=== PATIENT | female | born 1990 | race African-American/Black ===

== ENCOUNTER 2018-01-23 01:39 | Day surgery (SDC) | payer BC ==
[~2018-01-23] VITALS: Ht 162.6 cm; Wt 87.7 kg
[2018-01-23 02:25] LABS: HEMATOCRIT 33.9 % (36.0-46.0); HEMOGLOBIN 11.5 G/DL (11.9-15.5); MCH 27.9 PG (29.0-34.0); MCHC 33.9 G/DL (30.0-36.0); MCV 82.3 FL (83-99); PLATELET COUNT 198 K/uL (156-360); RBC DIS.WIDTH-CV 12.5 % (11.8-14.6); RBC DIS.WIDTH-SD 37.5 % (39-53); RED BLOOD COUNT 4.12 M/uL (3.80-5.20); WHITE BLOOD COUNT 11.6 K/uL (4.1-10.2)
[2018-01-23 02:33] LABS: ALBUMIN 3.7 g/dL (3.2-4.8); CHLORIDE 103 mEq/L (99-109); POTASSIUM 3.6 mEq/L (3.7-5.4); SODIUM 132 mEq/L (136-147)
[2018-01-23 02:35] LABS: GLUCOSE 103 mg/dL (70-99)
[2018-01-23 02:36] LABS: TOTAL PROTEIN 7.1 g/dL (6.4-8.3)
[2018-01-23 02:37] LABS: TOTAL BILIRUBIN 0.2 mg/dL (0.0-1.0)
[2018-01-23 02:39] LABS: ALKALINE PHOSPHATASE 71 IU/L (3-129); CREATININE 0.6 mg/dL (0.6-1.3)
[2018-01-23 02:40] LABS: GFR ESTIMATE (CALCULATED) > 59 mL/min/; UREA NITROGEN (BUN) 12 mg/dL (9-23)
[2018-01-23 02:41] LABS: AST (GOT) 19 IU/L (2-34); DIRECT BILIRUBIN 0.1 mg/dL (0.0-0.3)
[2018-01-23 02:42] LABS: ALT (GPT) 22 IU/L (3-49)
[2018-01-23 03:09] LABS: QUANTITATIVE HCG 63631.7 MIU/ML
[2018-01-23 05:08] LABS: HEMATOCRIT 33.8 % (36.0-46.0); HEMOGLOBIN 11.4 G/DL (11.9-15.5); MCH 27.8 PG (29.0-34.0); MCHC 33.7 G/DL (30.0-36.0); MCV 82.4 FL (83-99); PLATELET COUNT 192 K/uL (156-360); RBC DIS.WIDTH-CV 12.5 % (11.8-14.6); RBC DIS.WIDTH-SD 37.4 % (39-53); WHITE BLOOD COUNT 11.4 K/uL (4.1-10.2)
[2018-01-23] MEDS ORDERED: IBUPROFEN800 MG PO (08:18)
[2018-01-23] MEDS ORDERED: HYDROCODON-ACE1 EAC7 PO (08:18)
[2018-01-23 08:55] VITALS: BP 107/58; BP 108/64
[2018-01-23 09:55] VITALS: BP 108/64
== END 2018-01-23 10:25 | disposition home or self-care (01) ==
LOC: EME 01:39 → SDC 07:15
PROVIDERS: Physician Assistant
PROC: 10D17ZZ Extraction of Products of Conception, Retained, Via Natural or Artificial Opening (ICD-10-PCS; principal; 2018-01-23)
PROC: BU4CZZZ Ultrasonography of Uterus and Ovaries (ICD-10-PCS; principal; 2018-01-23)
DX: O03.4 Incomplete spontaneous abortion without complication (principal); Q51.2 Other doubling of uterus; D25.9 Leiomyoma of uterus, unspecified; E66.9 Obesity, unspecified; Z88.8 Allergy status to other drugs, medicaments and biological substances
CPT/HCPCS: 76801; 76998; 80048; 80076; 84702; 85027; 88305; 99281; 99285; J0330; J0690; J1100; J1885; J2210; J2250; J2310; J2405; J3010; J7030; J7120